=== PATIENT | female | born 1930 | race Caucasian/White ===

== ENCOUNTER 2016-04-20 15:18 | Inpatient (IN) | payer MEDICARE, BC ==
[~2016-04-20 15:18] MED LIST: ANTIVERT 25MG25 MG PO; ASPIRIN E.C. 8181 MG PO; B COMPLEX & B121 TAB PO; CALCIUM 600/VIT1 CA1 PO; CELEBREX 200MG200 MG PO; COMBIGAN 0.2%-0.5 ML OD; EXELON13.3TDM; FERROUS SU325 MG/TAB PO; GLUCOSAMINE & C1 TE1 PO; GLUCOTROL XL10 MG PO; K-DUR 10 MEQ T10 MEQ PO; K-DUR20 MEQ PO; LASIX 20MG TABL20 MG PO; LASIX 80MG TABL80 MG PO; LIPITOR 10MG10 MG PO; LUTEIN 15 MG-0.1 SGL PO; MAG-OX 400400 MG/TAB PO; MAGNESIUM200 MG PO; MSM1000 MG; MULTI VITAMINS1 TAB PO; NAMENDA XR 28MG PO; NORCO 325 MG-51 TAB PO; OMEGA-3 FISH1000 MG PO; PRECOSE 25MG25 MG PO; PROAIR HFA0.09 MG/AC IH; QUALAQUIN324 MG PO; REQUIP2 MG PO; SYNTHROID 0.0.025 MG PO; TYLENOL 325MG325 MG PO; VITAMIN A10k; VITAMIN D 1001000 IU PO; XARELTO10 MG PO; ZEASORB-AF21 TP
[2016-05-03 07:22] LABS: MEAN CELL VOLUME 93 fl (80.0-100.0); MEAN CORPUSCULAR HGB CONC 33 g/dl (33.0-37.0); MEAN PLATELET VOLUME 12.2 fl (7.4-10.4); PLATELET COUNT 277 K/mm3 (130-400); RED BLOOD COUNT 3.78 M/mm3 (4.10-5.30); REDCELL DISTRIBUTION WIDTH-CV 15.6 % (11.5-14.5); WHITE BLOOD COUNT 10.6 K/mm3 (4.8-10.8)
[2016-05-03 07:23] LABS: HEMATOCRIT 35.3 % (37.0-47.0); HEMOGLOBIN 11.5 g/dl (12.5-16.0); MEAN CORPUSCULAR HEMOGLOBIN 30 pg (27.0-31.0)
[2016-05-03 07:33] LABS: CALCIUM 11.4 mg/dL (8.4-10.2); CREATININE, serum 1.36 mg/dL (0.52-1.25); POTASSIUM 4.2 mmol/L (3.4-5.0)
[2016-05-03] MEDS ORDERED: COMBIGAN 0.2%-0.5 ML OD (08:05)
[2016-05-03] MEDS ORDERED: CELEBREX 200MG200 MG PO (08:06)
[2016-05-03 10:15] VITALS: BP 141/44; PULSE 49
[2016-05-03 10:45] VITALS: BP 121/57; PULSE 52
[2016-05-03 10:49] VITALS: TEMP 97
[2016-05-03 12:00] VITALS: BP 136/70; PULSE 52
== END 2016-05-03 15:00 | DRG 566 ==
LOC: JCC 05-03 06:11
PROVIDERS: Nurse Anesthetist, Certified Registered
DX: S72.491K Other fracture of lower end of right femur, subsequent encounter for closed fracture with nonunion (principal); Z53.09 Procedure and treatment not carried out because of other contraindication
CPT/HCPCS: J2060; J2250; J2370; J2704; J3010; J7050; J7120